=== PATIENT | female | born 1940 | race Caucasian/White ===

== ENCOUNTER 2023-12-03 02:31 | Inpatient (IN) ==
[2023-12-03] MEDS: Morphine 4 MG/ML VIAL (1 ml) IV ONE (02:59)
[2023-12-03] MEDS: Ondansetron 4 mg VIAL 2 MG/ML 2 ml VIAL IV ONE (02:59)
[2023-12-03 03:30] LABS: ABS Basophils 0.1 10^3/uL (0.0-0.1); ABS Eosinophils 0.5 10^3/uL (0.0-0.5); ABS Monocytes 0.8 10^3/uL (0.0-0.9); ABS Neutrophils 10.3 10^3/uL (1.5-7.6); Eosinophil % 3.6 %; Hematocrit 34.7 % (35-45); Hemoglobin 11.1 g/dL (11.5-14.3); Mean Corpuscular Volume 84.2 fL (80-97); Mean Platelet Volume 8.8 fL (7.5-11.2); Platelet Count 312 10^3/uL (150-450); Red Blood Count 4.12 10^6/uL (3.63-4.92); Red Cell Distribution Width 15.6 % (12-17); White Blood Count 12.7 10^3/uL (3.8-11.8)
[2023-12-03 04:37] LABS: Albumin 3.8 g/dL (3.2-5.2); Albumin/Globulin Ratio 1.1 (1-3); Calcium 9.5 mg/dL (8.6-10.3); Creatinine, Serum 1.06 mg/dL (0.51-0.95); Globulin 3.4 g/dL (2-4); Total Bilirubin 0.3 mg/dL (0.2-1.0); Total Protein 7.2 g/dL (6.4-8.9); eGFR CKD-EPI 53.1 (>60)
[2023-12-03 04:57] LABS: Potassium 4.4 mmol/L (3.5-5.0)
[2023-12-03] MEDS: Acetaminophen IV 1 GM/100ML 1,000 MG/100 ML BAG IV SCH (06:16)
[2023-12-03] MEDS ORDERED: Polyethylene Glycol 3350 BTL 238 GM BTL PO PRN (07:45)
[2023-12-03] MEDS ORDERED: Polyethylene Glycol 3350 17 GM PACKET PO PRN (07:49)
[2023-12-03] MEDS: Enoxaparin 60 MG/0.6 ML SYR SUBCUT SCH (10:59)
[2023-12-03] MEDS: Morphine 2 MG/ML SYRINGE IV PRN (10:59)
[2023-12-03] MEDS ORDERED: Ondansetron 4 mg VIAL 2 MG/ML 2 ml VIAL IV PRN (17:37)
[2023-12-04 06:01] LABS: ABS Basophils 0.1 10^3/uL (0.0-0.1); ABS Eosinophils 0.5 10^3/uL (0.0-0.5); ABS Lymphocytes 1.4 10^3/uL (1.0-4.8); ABS Monocytes 0.8 10^3/uL (0.0-0.9); ABS Neutrophils 3.5 10^3/uL (1.5-7.6); ABS Nucleated RBC 0.01 10^3/ul; Eosinophil % 7.8 %; Hemoglobin 9.6 g/dL (11.5-14.3); Mean Corpuscular Hgb Conc 33.2 g/dL (31-36); Mean Corpuscular Volume 84.3 fL (80-97); Mean Platelet Volume 8.3 fL (7.5-11.2); Nucleated Red Blood Cells % 0.1 %/100WBC (0.0-0.8); Platelet Count 250 10^3/uL (150-450); Red Blood Count 3.44 10^6/uL (3.63-4.92); Red Cell Distribution Width 15.9 % (12-17); White Blood Count 6.2 10^3/uL (3.8-11.8)
[2023-12-04 07:39] LABS: Creatinine, Serum 1.05 mg/dL (0.51-0.95); Potassium 4.5 mmol/L (3.5-5.0); eGFR CKD-EPI 53.7 (>60)
[2023-12-04] MEDS ORDERED: Lorazepam PYXIS KEY PRN (10:51)
[2023-12-04 11:07] LABS: Hematocrit 29.9 % (35-45); Hemoglobin 9.6 g/dL (11.5-14.3); Mean Corpuscular Hemoglobin 27.3 pg (27-33); Mean Corpuscular Hgb Conc 32.3 g/dL (31-36); Mean Corpuscular Volume 84.7 fL (80-97); Mean Platelet Volume 8.9 fL (7.5-11.2); Platelet Count 251 10^3/uL (150-450); Red Blood Count 3.53 10^6/uL (3.63-4.92); Red Cell Distribution Width 15.6 % (12-17); White Blood Count 6.3 10^3/uL (3.8-11.8)
[2023-12-04] MEDS: Iodixanol (CONTRAST) 320 MG/ML 100 ML SDV IV ONE (11:07)
[2023-12-04] MEDS: Naloxone Nasal Spray 4 MG/0.1 ML NASAL.SPR INTRANASAL ONE (11:08)
[2023-12-04 11:27] LABS: Albumin 3.3 g/dL (3.2-5.2); Albumin/Globulin Ratio 1.2 (1-3); Calcium 8.7 mg/dL (8.6-10.3); Creatinine, Serum 1.05 mg/dL (0.51-0.95); Globulin 2.8 g/dL (2-4); Magnesium 1.9 mg/dL (1.9-2.7); Potassium 4.6 mmol/L (3.5-5.0); Total Bilirubin 0.5 mg/dL (0.2-1.0); Total Protein 6.1 g/dL (6.4-8.9); eGFR CKD-EPI 53.7 (>60)
[2023-12-04] MEDS: Lactated Ringers 1000 ml BAG 1,000 ML IV ONE (11:30)
[2023-12-04] MEDS: diazePAM INJ CARPUJECT 5 MG/ML SYRINGE IV ONE (12:22)
[2023-12-04] MEDS: LORazepam 2 mg VIAL 1 ml IV PUSH ONE (16:05)
[2023-12-04 16:12] LABS: PCO2 Arterial 45 mmHg (35-45); PO2 Arterial 78 mmHg (80-100)
[2023-12-05] MEDS: Levothyroxine 100 MCG/5 ML VIAL IV SCH (05:52)
[2023-12-05 06:04] LABS: Hematocrit 28.4 % (35-45); Hemoglobin 9.4 g/dL (11.5-14.3); Mean Corpuscular Hemoglobin 27.7 pg (27-33); Mean Corpuscular Volume 83.9 fL (80-97); Mean Platelet Volume 8.3 fL (7.5-11.2); Platelet Count 246 10^3/uL (150-450); Red Blood Count 3.38 10^6/uL (3.63-4.92); Red Cell Distribution Width 15.4 % (12-17); White Blood Count 6.2 10^3/uL (3.8-11.8)
[2023-12-05 06:22] LABS: Calcium 9.1 mg/dL (8.6-10.3); Creatinine, Serum 0.8 mg/dL (0.51-0.95); Magnesium 1.9 mg/dL (1.9-2.7); Potassium 4.3 mmol/L (3.5-5.0); eGFR CKD-EPI 74.4 (>60)
[2023-12-05] MEDS: Magnesium Sulfate 2 gm BAG 2 GM/50 ML BAG IVPB ONE (07:40)
[2023-12-05] MEDS: diazePAM INJ CARPUJECT 5 MG/ML SYRINGE IV ONE (09:01)
[2023-12-05] MEDS ORDERED: Bupivacaine 0.25% SDV 30 ML ONE (09:19)
[2023-12-05] MEDS ORDERED: fentaNYL 100 mcg/2 ml 50 MCG/ML VIAL ONE ×2 (09:33→10:46)
[2023-12-05] MEDS ORDERED: Lidocaine 2% PF 5 ML VIAL ONE (10:11)
[2023-12-05] MEDS ORDERED: Ondansetron 4 mg VIAL 2 MG/ML 2 ml VIAL ONE (10:11)
[2023-12-05] MEDS ORDERED: Dexamethasone IV 4 MG/ML VIAL 1 ml VIAL ONE (10:11)
[2023-12-05] MEDS ORDERED: Propofol 10 MG/ML 20 ML BTL ONE (10:11)
[2023-12-05] MEDS ORDERED: Phenylephrine IV 10 MG/ML 1 ml VIAL ONE (10:11)
[2023-12-05] MEDS ORDERED: Glycopyrrolate IV 0.2 MG/ML 1 ML VIAL ONE (10:11)
[2023-12-05] MEDS ORDERED: ceFAZolin VIAL VIAL ONE (10:17)
[2023-12-05] MEDS ORDERED: fentaNYL 100 mcg/2 ml 50 MCG/ML VIAL IV PRN (10:40)
[2023-12-05] MEDS ORDERED: Ondansetron 4 mg VIAL 2 MG/ML 2 ml VIAL IV PRN (10:40)
[2023-12-05] MEDS ORDERED: Naloxone 0.4 mg VIAL 0.4 mg/ml 1 ml VIAL IV PRN (10:40)
[2023-12-05] MEDS ORDERED: Acetaminophen IV 1 GM/100ML 1,000 MG/100 ML BAG IV PRN (10:40)
[2023-12-05] MEDS: ceFAZolin 1 GM ADVAN 1 GM in NS 0.9% 50 ML 50 ML IVPB SCH (17:18)
[2023-12-07 06:01] LABS: Hemoglobin 7.8 g/dL (11.5-14.3); Mean Corpuscular Hemoglobin 27.6 pg (27-33); Mean Corpuscular Hgb Conc 31.4 g/dL (31-36); Mean Corpuscular Volume 87.9 fL (80-97); Mean Platelet Volume 8.6 fL (7.5-11.2); Platelet Count 223 10^3/uL (150-450); Red Blood Count 2.84 10^6/uL (3.63-4.92); White Blood Count 7.1 10^3/uL (3.8-11.8)
[2023-12-07] MEDS: diazePAM INJ CARPUJECT 5 MG/ML SYRINGE IV ONE (14:51)
[2023-12-08 05:52] LABS: ABS Eosinophils 0.3 10^3/uL (0.0-0.5); ABS Monocytes 0.9 10^3/uL (0.0-0.9); ABS Neutrophils 4.7 10^3/uL (1.5-7.6); ABS Nucleated RBC 0.01 10^3/ul; Hematocrit 22.7 % (35-45); Hemoglobin 7.6 g/dL (11.5-14.3); Lymphocyte % 14.7 %; Mean Corpuscular Hemoglobin 27.8 pg (27-33); Mean Corpuscular Hgb Conc 33.3 g/dL (31-36); Mean Corpuscular Volume 83.4 fL (80-97); Mean Platelet Volume 8.4 fL (7.5-11.2); Nucleated Red Blood Cells % 0.1 %/100WBC (0.0-0.8); Platelet Count 232 10^3/uL (150-450); Red Blood Count 2.72 10^6/uL (3.63-4.92); Red Cell Distribution Width 16.2 % (12-17); White Blood Count 6.9 10^3/uL (3.8-11.8)
[2023-12-08 06:02] LABS: Calcium 9.1 mg/dL (8.6-10.3); Creatinine, Serum 0.76 mg/dL (0.51-0.95); Magnesium 1.9 mg/dL (1.9-2.7); Phosphorus 2.4 mg/dL (2.5-5.0); Potassium 4.6 mmol/L (3.5-5.0); eGFR CKD-EPI 79.2 (>60)
[2023-12-08] MEDS: diazePAM INJ CARPUJECT 5 MG/ML SYRINGE IV ONE (12:43)
[2023-12-08] MEDS: Lactated Ringers 1000 ml BAG 1,000 ML IV SCH (12:43)
[2023-12-08] MEDS: diazePAM INJ CARPUJECT 5 MG/ML SYRINGE IV SCH (18:27)
[2023-12-08] MEDS: Magnesium Sulfate 2 gm BAG 2 GM/50 ML BAG IVPB ONE (18:28)
[2023-12-08] MEDS ORDERED: diazePAM INJ CARPUJECT 5 MG/ML SYRINGE IV ONE (19:00)
[2023-12-09 06:59] LABS: Hematocrit 23.8 % (35-45); Hemoglobin 7.5 g/dL (11.5-14.3); Mean Corpuscular Hemoglobin 27.6 pg (27-33); Mean Corpuscular Hgb Conc 31.4 g/dL (31-36); Mean Corpuscular Volume 87.8 fL (80-97); Mean Platelet Volume 7.8 fL (7.5-11.2); Platelet Count 273 10^3/uL (150-450); Red Blood Count 2.71 10^6/uL (3.63-4.92); Red Cell Distribution Width 16.2 % (12-17)
[2023-12-09] MEDS: Senna TAB 8.6 mg TAB PO PRN (08:13)
[2023-12-09] MEDS: Ferric Gluconate IV 250 MG in NS 0.9% 250 ml 200 ML IVPB SCH (12:24)
[2023-12-09 15:28] LABS: Urine Appearance Turbid; Urine Bilirubin Negative (Negative); Urine Blood 2+ (Negative); Urine Color Yellow; Urine Glucose Negative (Negative); Urine Ketones Trace (Negative); Urine Nitrite Negative (Negative); Urine Protein Trace (Negative); Urine Specific Gravity 1.029 (1.002-1.030); Urine Urobilinogen Negative (Negative)
[2023-12-09 15:45] LABS: Urine Bacteria Absent /HPF (Absent); Urine Red Blood Cell 3+(>10/hpf) /HPF (0-Trace); Urine Squamous Epithelial Cell Present /HPF (Absent); Urine White Blood Cell 2+(11-20/hpf) /HPF (0-Trace)
[2023-12-10 10:26] LABS: ABS Eosinophils 0.5 10^3/uL (0.0-0.5); ABS Lymphocytes 0.8 10^3/uL (1.0-4.8); ABS Monocytes 0.8 10^3/uL (0.0-0.9); ABS Neutrophils 5.2 10^3/uL (1.5-7.6); ABS Nucleated RBC 0.01 10^3/ul; Eosinophil % 6.5 %; Hematocrit 23.8 % (35-45); Hemoglobin 7.8 g/dL (11.5-14.3); Lymphocyte % 11.3 %; Mean Corpuscular Hemoglobin 27.5 pg (27-33); Mean Corpuscular Hgb Conc 32.9 g/dL (31-36); Mean Corpuscular Volume 83.6 fL (80-97); Mean Platelet Volume 7.6 fL (7.5-11.2); Nucleated Red Blood Cells % 0.2 %/100WBC (0.0-0.8); Platelet Count 344 10^3/uL (150-450); Red Blood Count 2.85 10^6/uL (3.63-4.92); Red Cell Distribution Width 15.7 % (12-17); White Blood Count 7.4 10^3/uL (3.8-11.8)
[2023-12-10 11:05] LABS: Calcium 9.5 mg/dL (8.6-10.3); Creatinine, Serum 0.74 mg/dL (0.51-0.95); Magnesium 1.9 mg/dL (1.9-2.7); Potassium 4.4 mmol/L (3.5-5.0); eGFR CKD-EPI 81.7 (>60)
[2023-12-10] MEDS: Iohexol 350 (CONTRAST) 500 ML MDV IV ONE (12:40)
[2023-12-10] MEDS: Ferric Gluconate IV 250 MG in NS 0.9% 250 ml 200 ML IVPB SCH (12:47)
[2023-12-10] MEDS: Enoxaparin 100 MG/ML SYR SUBCUT SCH (12:52)
[2023-12-10] MEDS ORDERED: Magnesium Hydroxide LIQ 30 ML UDC PO PRN (12:57)
[2023-12-10] MEDS: Magnesium Hydroxide LIQ 30 ML UDC PO SCH (13:17)
[2023-12-10] MEDS: Morphine 2 MG/ML SYRINGE IV PRN (14:00)
[2023-12-10] MEDS: SMOG Enema (MgOH-NS-Gly-MinO) 330 ML ENEMA PR ONE (16:57)
[2023-12-10] MEDS: Polyethylene Glycol 3350 17 GM PACKET PO SCH (21:02)
[2023-12-10] MEDS: Senna TAB 8.6 mg TAB PO SCH (21:03)
[2023-12-11 05:46] LABS: Hematocrit 23.3 % (35-45); Hemoglobin 7.7 g/dL (11.5-14.3); Mean Corpuscular Hemoglobin 27.7 pg (27-33); Mean Corpuscular Hgb Conc 33.1 g/dL (31-36); Mean Corpuscular Volume 83.8 fL (80-97); Mean Platelet Volume 7.5 fL (7.5-11.2); Platelet Count 348 10^3/uL (150-450); Red Blood Count 2.78 10^6/uL (3.63-4.92); Red Cell Distribution Width 15.8 % (12-17); White Blood Count 6.2 10^3/uL (3.8-11.8)
[2023-12-11 06:02] LABS: Calcium 9.2 mg/dL (8.6-10.3); Creatinine, Serum 0.72 mg/dL (0.51-0.95); Magnesium 1.8 mg/dL (1.9-2.7); Potassium 4.1 mmol/L (3.5-5.0); eGFR CKD-EPI 84.5 (>60)
[2023-12-11 12:14] LABS: TSH Ultra Thyroid Stim Horm 4.72 mcIU/mL (0.34-5.60)
[2023-12-11 12:29] LABS: Vitamin D Total 25(OH) 28.1 ng/mL (20-50)
[2023-12-11] MEDS: Magnesium Sulfate 2 gm BAG 2 GM/50 ML BAG IVPB ONE ×2 (14:09→16:51)
[2023-12-11] MEDS: D5W 1/2 NS 1000 ml BAG 1,000 ML IV SCH (16:08)
[2023-12-11] MEDS: Ampicillin IV 1 GM in NS 0.9% 50 ML 50 ML IVPB SCH (16:08)
[2023-12-11] MEDS: D5LR 1000 ml BAG 1,000 ML IV SCH (16:10)
[2023-12-11] MEDS: diazePAM INJ CARPUJECT 5 MG/ML SYRINGE IV ONE (16:56)
[2023-12-12 06:38] LABS: Calcium 8.9 mg/dL (8.6-10.3); Creatinine, Serum 0.63 mg/dL (0.51-0.95); Magnesium 2.2 mg/dL (1.9-2.7); Potassium 4.2 mmol/L (3.5-5.0); eGFR CKD-EPI 89.1 (>60)
[2023-12-12] MEDS: Acetaminophen IV 1 GM/100ML 1,000 MG/100 ML BAG IV SCH (15:06)
[2023-12-12] MEDS: diazePAM INJ CARPUJECT 5 MG/ML SYRINGE IV SCH (22:09)
[2023-12-13 07:02] LABS: Hematocrit 22.5 % (35-45); Hemoglobin 7.3 g/dL (11.5-14.3); Mean Corpuscular Hemoglobin 27.5 pg (27-33); Mean Corpuscular Hgb Conc 32.7 g/dL (31-36); Mean Corpuscular Volume 84.3 fL (80-97); Mean Platelet Volume 7.2 fL (7.5-11.2); Platelet Count 370 10^3/uL (150-450); Red Blood Count 2.66 10^6/uL (3.63-4.92); Red Cell Distribution Width 15.6 % (12-17); White Blood Count 7.6 10^3/uL (3.8-11.8)
[2023-12-13] MEDS ORDERED: Senna TAB 8.6 mg TAB PO PRN (08:45)
[2023-12-13] MEDS ORDERED: Magnesium Hydroxide LIQ 30 ML UDC PO PRN (08:46)
[2023-12-13] MEDS: D5W 1/2 NS 1000 ml BAG 1,000 ML IV SCH (11:31)
[2023-12-14 07:22] LABS: Hematocrit 26.6 % (35-45); Hemoglobin 8.8 g/dL (11.5-14.3); Mean Corpuscular Hemoglobin 28.5 pg (27-33); Mean Corpuscular Hgb Conc 32.9 g/dL (31-36); Mean Corpuscular Volume 86.6 fL (80-97); Mean Platelet Volume 7.4 fL (7.5-11.2); Platelet Count 365 10^3/uL (150-450); Red Blood Count 3.07 10^6/uL (3.63-4.92); Red Cell Distribution Width 15.6 % (12-17); White Blood Count 5.8 10^3/uL (3.8-11.8)
[2023-12-14 07:43] LABS: Calcium 8.6 mg/dL (8.6-10.3); Creatinine, Serum 0.68 mg/dL (0.51-0.95); Magnesium 1.9 mg/dL (1.9-2.7); eGFR CKD-EPI 87.4 (>60)
[2023-12-14] MEDS ORDERED: Prochlorperazine 5 mg/ml 2 ml VIAL (10 mg) IV PRN (19:35)
[2023-12-15 07:04] LABS: Creatinine, Serum 0.74 mg/dL (0.51-0.95); Magnesium 1.9 mg/dL (1.9-2.7); Potassium 4.1 mmol/L (3.5-5.0); eGFR CKD-EPI 81.2 (>60)
[2023-12-15] MEDS: Magnesium Sulfate 2 gm BAG 2 GM/50 ML BAG IVPB ONE (19:39)
[2023-12-15] MEDS: Magnesium Sulfate 2 gm BAG 2 GM/50 ML BAG ONE (19:42)
[2023-12-17 06:20] LABS: Hematocrit 28.9 % (35-45); Hemoglobin 9.6 g/dL (11.5-14.3); Mean Corpuscular Hemoglobin 29.1 pg (27-33); Mean Corpuscular Hgb Conc 33.4 g/dL (31-36); Mean Corpuscular Volume 87.2 fL (80-97); Mean Platelet Volume 7.1 fL (7.5-11.2); Platelet Count 409 10^3/uL (150-450); Red Blood Count 3.31 10^6/uL (3.63-4.92); Red Cell Distribution Width 16.7 % (12-17); White Blood Count 6.1 10^3/uL (3.8-11.8)
[2023-12-17] MEDS: Polyethylene Glycol 3350 17 GM PACKET PO PRN (08:48)
[2023-12-17 11:40] LABS: Rapid COVID-19 Molecular Undetected (Undetected)
[2023-12-17 14:13] VITALS: BP 112/73
== END 2023-12-17 14:28 | DRG 492 ==
LOC: EDHOLD 02:31 → ED 02:31 → SUATTDRO 05:40 → SSU 06:00 → SUATTDRO 12-04 10:51
PROVIDERS: ADMIT Internal Medicine; ATTEND Internal Medicine